=== PATIENT | female | born 1965 | race Caucasian/White ===

== ENCOUNTER 2017-11-17 21:37 | Observation (INO) | payer SELFPAY ==
[~2017-11-17] VITALS: Ht 170.2 cm; Wt 77.1 kg
[2017-11-17 22:30] LABS: Basophils # (auto) 0.1 uL; Eosinophils # (auto) 0.2 uL; Eosinophils % (auto) 2.7 % (0.0-7.0); Monocytes # (auto) 0.8 uL; Monocytes % (auto) 8.4 % (0.0-12.0)
[2017-11-17 22:32] LABS: Basophils % (auto) 0.7 % (0.0-2.0); Hematocrit 42.9 % (36.0-46.0); Hemoglobin 15.3 g/dL (12.2-16.2); Lymphocytes # (auto) 3.2 uL; Lymphocytes % (auto) 35.4 % (10.0-50.0); Mean Corpuscular Hemoglobin 34.7 pg (28.0-32.0); Mean Corpuscular Hgb Conc. 35.7 g/dL (32.0-36.0); Mean Corpuscular Volume 97.3 fL (80.0-100.0); Neutrophils # (auto) 4.8 uL; Neutrophils % (auto) 52.8 % (37.0-80.0); Nucleated Red Blood Cells % 0.2 %; Platelet Count (auto) 174 10^3/uL (140-450); Red Blood Cells 4.41 10^6/uL (4.0-5.20); Red Cell Distribution Width 13.3 % (11.8-14.3)
[2017-11-17 22:47] LABS: INR 0.92 (0.9-1.15); Partial Thromboplastin Time 26.9 sec (23.78-33.04); Prothrombin Time 9.9 sec (9.27-12.13)
[2017-11-17 22:59] LABS: Alanine Aminotransferase 24 U/L (13-56); Albumin 3.2 g/dL (3.4-5.0); Alkaline Phosphatase 135 U/L (45-117); Anion Gap 5 (5-15); Aspartate Aminotransferase 12 U/L (15-37); BUN/Creatinine Ratio 8.8; Bilirubin, Total 0.2 mg/dL (0.2-1.0); Blood Urea Nitrogen 8 mg/dL (7-18); Calcium 8.6 mg/dL (8.5-10.1); Carbon Dioxide 26 mmol/L (21-32); Chloride 103 mmol/L (98-107); GFR African American 83 mL/min; GFR Non-African American 69 mL/min; Glucose 375 mg/dL (74-106); Magnesium 2.3 mg/dL (1.6-2.6); Potassium 3.6 mmol/L (3.5-5.1); Sodium 134 mmol/L (136-145); Total Protein 7.8 g/dL (6.4-8.2)
[2017-11-17] MEDS ORDERED: NALBUPHINE HCL 10 MG/1ml INJECTION ONE (23:19)
[2017-11-17] MEDS ORDERED: NALBUPHINE HCL 10 MG/1ml INJECTION IV ONE (23:30)
[2017-11-18] MEDS ORDERED: ENOXAPARIN SOD 100 MG/1 ML SYRINGE SC ONE
[2017-11-18 02:30] VITALS: BP 105/62
== END 2017-11-18 02:55 | disposition home or self-care (01) | DRG 301 ==
LOC: ER 21:44 → OVERFLOW 21:45 → ER 11-18 02:55
PROVIDERS: ADMIT Emergency Medicine; ATTEND Emergency Medicine
DX: I82.411 Acute embolism and thrombosis of right femoral vein (principal); E10.65 Type 1 diabetes mellitus with hyperglycemia
CPT/HCPCS: 36415; 71045; 80053; 83735; 84484; 85025; 85610; 85730; 93005; 93971; 96372; 96374; 99285; G0378; J1650; J2300